=== PATIENT | female | born 1990 | race Caucasian/White ===

== ENCOUNTER → 2016-08-24 | Outpatient (REF) | payer OTHER ==
[~2016-08-24] MED LIST: ACET500C PO; ADACEL IM; ENOX80SY SQ; HEPA50VL IM; PERCOCET PO; PRENTAB74 PO
== END ==
LOC: M SFHCLERA 14:29
PROVIDERS: ATTEND Physician Assistant
DX: R50.9 Fever, unspecified (principal)

== ENCOUNTER → 2018-09-26 | Outpatient (REF) | payer OTHER ==
[~2018-09-26] MED LIST changes: -ENOX80SY SQ; +HEPA500020 IM; -HEPA50VL IM; +LOVE0.6I2 SQ; +OXYC1TAB23 PO; -PERCOCET PO
[2018-09-27 13:14] LABS: CHLAMYDIA DNA AMPLIFICATION POSITIVE (NEGATIVE); GC DNA AMPLIFICATION NEGATIVE (NEGATIVE)
== END ==
LOC: M SFHCLERA 20:28
PROVIDERS: ATTEND Nurse Practitioner Family
DX: R39.9 Unspecified symptoms and signs involving the genitourinary system (principal)

== ENCOUNTER 2018-12-04 12:19 | Emergency (ER) | payer OTHER ==
[~2018-12-04] VITALS: Ht 167.6 cm; Wt 63.6 kg
[~2018-12-04 12:19] MED LIST changes: +FLAG500T PO; +PROAAER10 INH
[2018-12-04] MEDS ORDERED: FLUC150T PO (13:58)
[2018-12-04 14:04] VITALS: BP 107/71
== END 2018-12-04 14:14 | disposition home or self-care (01) ==
LOC: M ED 12:19
DX: B37.3 Candidiasis of vulva and vagina (principal); E34.0 Carcinoid syndrome; I87.1 Compression of vein; Z87.42 Personal history of other diseases of the female genital tract; Z87.442 Personal history of urinary calculi

== ENCOUNTER 2019-07-01 21:20 | Emergency (ER) | payer OTHER ==
[~2019-07-01] VITALS: Ht 167.6 cm; Wt 72.1 kg
[~2019-07-01 21:20] MED LIST changes: +FLUC150T PO
[2019-07-01] MEDS ORDERED: NORCO 5/325MG TABLET (BULK FOR ED) PO ONE (23:15)
[2019-07-01] MEDS ORDERED: NORC1TAB7 PO (23:16)
[2019-07-01 23:30] VITALS: BP 121/68
== END 2019-07-01 23:31 | disposition home or self-care (01) ==
LOC: M ED 21:20
DX: K02.9 Dental caries, unspecified (principal)

== ENCOUNTER → 2019-07-17 | Outpatient (REF) | payer OTHER ==
[~2019-07-17] MED LIST changes: +NORC1TAB7 PO
[2019-07-17 19:59] LABS: CHLAMYDIA DNA AMPLIFICATION NEGATIVE (NEGATIVE); GC DNA AMPLIFICATION NEGATIVE (NEGATIVE)
== END ==
LOC: M SFHCLERA 09:41
PROVIDERS: ATTEND Nurse Practitioner Family
DX: N89.8 Other specified noninflammatory disorders of vagina (principal)

== ENCOUNTER 2020-03-20 21:15 | Emergency (ER) | payer OTHER ==
[~2020-03-20] VITALS: Ht 167.6 cm; Wt 72.1 kg
--- NOTE | 2020-03-20 23:15 | REPVR ---
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 Limited exam focused on the left lower extremity veins. COMPARISON: No relevant prior studies available. FINDINGS: Left deep veins: There is echogenic material eccentrically positioned in the left common femoral vein and left femoral vein in the left upper thigh, and these veins are not fully compressible, which are findings compatible with deep vein thromboses that may be chronic in nature. No deep vein thrombosis is noted in the left femoral vein in the mid to distal thigh or in the left popliteal vein, which demonstrate normal compressibility, normal color Doppler flow, and a normal spectral waveform response augmentation. Left superficial veins: Unremarkable. Saphenofemoral junction is patent without thrombus. IMPRESSION: Nonocclusive deep vein thrombosis in the left common femoral vein and left femoral vein in the left upper thigh, which may be chronic in nature. Electronically signed by: Gaurav Vela On 03/20/2020 23:14:49 PM
[2020-03-21] MEDS ORDERED: ELIQ5TAB PO (01:33)
[2020-03-21] MEDS ORDERED: APIXABAN 5 MG TAB (ELIQUIS) PO ONE (01:45)
[2020-03-21 01:48] VITALS: BP 131/74
== END 2020-03-21 01:49 | disposition home or self-care (01) ==
LOC: M ED 21:15
DX: I82.412 Acute embolism and thrombosis of left femoral vein (principal); M79.662 Pain in left lower leg; Z86.718 Personal history of other venous thrombosis and embolism

== ENCOUNTER → 2020-04-21 | Outpatient (CLI) | payer OTHER ==
[~2020-04-21] MED LIST changes: +ELIQ5TAB PO; +ISOVUE-370 76% 100ML VIAL As Ordered ONE
--- NOTE | 2020-04-21 14:12 | REP ---
INDICATION: CHRONIC DVT IN FEMORAL VEIN OF LEFT LOWER EXT. 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 COMPARISON: Comparison left lower extremity venous ultrasound March 20, 2020 showed nonocclusive deep vein thrombosis in the left common femoral vein and left femoral vein.. TECHNIQUE: Helical scanning is acquired in dual phase post-contrast injection. The contrast dose is 100 mL of intravenous Isovue 370. Arterial and venous phase acquisitions are performed. Coronal and sagittal MPR and coronal MIP images are generated. FINDINGS: Preliminary order taker view demonstrates an IUD in place, umbilical jewelry, a left common and external iliac venous stent, and a normal bowel gas pattern. Nonvascular: There is a small accessory splenule. IUD in good position. Arterial finding: The suprarenal and infrarenal abdominal aorta is normal in caliber. Celiac, superior mesenteric, inferior mesenteric visceral artery origins are unremarkable. No branch stenosis or occlusion is seen. Singular nonstenotic renal arteries are observed bilaterally. The common iliac, external iliac, and internal iliac arteries are patent bilaterally. Venous phase: The superior mesenteric and a portal vein opacify normally and homogeneously. Splenic vein is unremarkable. There is a large venous stent in place extending from the external iliac vein just above the inguinal ligament proximally to the inferior aspect of the IVC. There are some calcifications in luminal thrombus within the stent on the arterial phase study. However, venous phase study shows some luminal enhancement as well consistent with stent patency although there is some degree of intraluminal thrombus suspected. The common femoral veins and the distal external iliac vein on the left are normal in size and symmetric. The appear to enhance normally. No Ankita vascular edema. IMPRESSION: Findings consistent with nonocclusive mural thrombus in the IVC left external iliac artery stent. There is evidence of luminal patency with a calcifying mural thrombus in the stent. The common femoral vein is not dilated on the left or the right. It appears to enhance normally. No other evidence of venous thrombosis seen. IUD in place in the uterus. <Electronically signed by Ezequiel Mtz > 04/21/20 [id number]
== END ==
LOC: M RAD 08:55
PROVIDERS: ATTEND Surgery
DX: I82.512 Chronic embolism and thrombosis of left femoral vein (principal)
CPT/HCPCS: 74175; Q9967